=== PATIENT | male | born 1955 | race Two or more races ===

== ENCOUNTER 2017-03-29 08:13 | Outpatient (CLI) | payer OTHER | END 2017-03-29 08:19 | disposition home or self-care (01) | LOC: RAD 501 08:13 | DX: Z96.642 Presence of left artificial hip joint (principal); M16.0 Bilateral primary osteoarthritis of hip ==

== ENCOUNTER → 2017-12-07 | Outpatient (CLI) | payer OTHER | END | disposition home or self-care (01) | LOC: RAD 501 09:14 | DX: Z96.642 Presence of left artificial hip joint (principal) ==

== ENCOUNTER 2018-11-07 14:20 | Outpatient (CLI) | payer OTHER | END 2018-11-07 14:29 | disposition home or self-care (01) | LOC: RAD 14:20 | DX: Z96.642 Presence of left artificial hip joint (principal) ==